=== PATIENT | male | born 1945 | race Caucasian/White ===

== ENCOUNTER 2017-11-10 19:30 | Outpatient (CLI) | payer MEDICARE, BC | END 2017-11-10 19:31 | disposition home or self-care (01) | LOC: SLEEPLAB 19:30 | PROVIDERS: ATTEND Family Medicine | DX: G47.33 Obstructive sleep apnea (adult) (pediatric) (principal); R53.83 Other fatigue; I49.3 Ventricular premature depolarization | CPT/HCPCS: 95811 ==

== ENCOUNTER 2021-06-05 10:52 | Outpatient (CLI) | payer MEDICARE, BC | END 2021-06-05 10:53 | disposition home or self-care (01) | LOC: TBSIIMAG 10:52 | PROVIDERS: ATTEND Family Medicine | DX: M48.062 Spinal stenosis, lumbar region with neurogenic claudication (principal); M51.16 Intervertebral disc disorders with radiculopathy, lumbar region; M47.26 Other spondylosis with radiculopathy, lumbar region; M25.552 Pain in left hip; M48.07 Spinal stenosis, lumbosacral region; M48.061 Spinal stenosis, lumbar region without neurogenic claudication | CPT/HCPCS: 72148 ==

== ENCOUNTER 2021-10-03 15:45 | Outpatient (CLI) | payer MEDICARE, BC ==
[2021-10-03 16:33] LABS: Hemoglobin 15.3 g/dL (13.5-17.5); Mean Corpuscular HGB CONC 33.7 g/dL (32.0-36.0); Mean Corpuscular Hemoglobin 30.4 pg (27.0-33.0); Mean Corpuscular Volume 90.3 fl (81.2-95.1); Mean Platelet Volume 10.7 fl (7.4-10.4); Platelet Count 240 10x3/uL (150-450); RBC Distribution Width 13.2 % (11.5-14.5); Red Blood Cell (RBC) Count 5.03 10x6/uL (4.32-5.72); White Blood Cell (WBC) Count 9.2 10x3/uL (3.5-10.5)
[2021-10-03 16:49] LABS: Anion Gap 14 mmol/L (10-20); BUN (Urea Nitrogen) 22 mg/dL (8.4-25.7); Calc. Creatinine Clearance 0 mL/min (70-130); Calcium 8.8 mg/dL (7.8-10.44); Carbon Dioxide 25 mmol/L (23-31); Chloride 104 mmol/L (98-107); Glucose 120 mg/dL (83-110); Potassium 3.8 mmol/L (3.5-5.1); Sodium 139 mmol/L (136-145)
[2021-10-03 16:54] LABS: INR-International Normal Ratio 0.9; PTT 27.5 sec (22.0-33.0); Prothrombin Time 10.1 sec (9.5-12.1)
[2021-10-04 08:33] LABS: SARS-CoV-2 PCR by NAA Not Detected (NotDetected)
== END 2021-10-03 15:46 | disposition home or self-care (01) ==
LOC: LABBT 15:45
PROVIDERS: ATTEND Surgery
DX: Z01.818 Encounter for other preprocedural examination (principal); Z20.822 Contact with and (suspected) exposure to COVID-19
CPT/HCPCS: 80048; 85027; 85610; 85730; 93005; U0003; U0005; 93010

== ENCOUNTER 2021-10-09 05:29 | Inpatient (IN) | payer MEDICARE, BC ==
[2021-10-09] MEDS ORDERED: Thrombin 5000 UNITS/5 ML VIAL ONE ×2 (06:32→09:56)
[2021-10-09] MEDS ORDERED: HYDROmorphone 0.5 MG/0.5 ML SYRINGE ONE ×2 (06:58→07:28)
[2021-10-09] MEDS ORDERED: fentaNYL Citrate/PF 100 MCG/2 ML SYRINGE ONE (06:58)
[2021-10-09] MEDS ORDERED: ceFAZolin (BATCH) 2 GM/100 ML BAG ONE (07:09)
[2021-10-09] MEDS ORDERED: Ondansetron PF 4 MG/2 ML Vial ONE (07:34)
[2021-10-09] MEDS ORDERED: ePHEDrine 50 MG/ML VIAL ONE (07:34)
[2021-10-09] MEDS ORDERED: Glycopyrrolate 0.2 MG/ML 5 ML SYRINGE ONE (07:34)
[2021-10-09] MEDS ORDERED: Rocuronium Bromide 10 MG/ML (10ML VIAL) ONE (07:34)
[2021-10-09] MEDS ORDERED: Lidocaine 1% PF 5 ML VIAL ONE ×2 (07:34)
[2021-10-09] MEDS ORDERED: PHENYLEPHRINE-NS 100 MCG/ML 10 ML SYRINGE ONE (07:34)
[2021-10-09] MEDS ORDERED: Dexamethasone 20 MG/5 ML VIAL ONE (07:34)
[2021-10-09] MEDS ORDERED: PROPOFOL 200 MG/20 ML VIAL ONE (07:34)
[2021-10-09] MEDS ORDERED: Ondansetron PF 4 MG/2 ML Vial IVP PRN (11:19)
[2021-10-09] MEDS ORDERED: Morphine 2 MG/ML VIAL SLOW IVP PRN (11:19)
[2021-10-09] MEDS ORDERED: Fentanyl 100 MCG/2 ML VIAL SLOW IVP PRN (11:25)
[2021-10-09] MEDS ORDERED: Ondansetron HCl/PF 4 MG/2 ML Vial IVP PRN (11:26)
[2021-10-09] MEDS ORDERED: hydrALAZINE 20 MG/ML VIAL SLOW IVP PRN (11:26)
[2021-10-09] MEDS ORDERED: HYDROmorphone 2 MG/ML VIAL SLOW IVP PRN (11:26)
[2021-10-09] MEDS ORDERED: Promethazine HCl 25 MG/ML VIAL IM PRN (11:26)
[2021-10-09] MEDS ORDERED: Promethazine HCl 25 MG/ML VIAL IVPB PRN (11:26)
[2021-10-09] MEDS ORDERED: Acetaminophen/Codeine 30-300mg Tablet PO PRN (11:28)
[2021-10-09] MEDS ORDERED: diphenhydrAMINE 25 MG CAP PO PRN (11:29)
[2021-10-09] MEDS ORDERED: HYDROmorphone 2 MG/ML VIAL ONE (11:31)
[2021-10-09] MEDS ORDERED: hydrALAZINE 20 MG/ML VIAL ONE ×2 (12:55)
[2021-10-09] MEDS ORDERED: ceFAZolin (BATCH) 2 GM in Premix Bag 1 BAG IVPB SCH (15:00)
[2021-10-09] MEDS: HYDROcodone/Acetaminophen 7.5/325 mg Tablet PO PRN ×2 (15:32→21:58)
[2021-10-09] MEDS: Ketorolac Tromethamine 30 MG/ML VIAL IVP PRN (16:50)
[2021-10-09] MEDS: Diazepam 5 MG TAB PO PRN (16:50)
[2021-10-09] MEDS: CEFAZOLIN 2 GM in Sodium Chloride 0.9% 100 ML IVPB SCH (17:20)
[2021-10-09] MEDS: Sodium Chloride 0.9% 1,000 ML IV SCH (17:20)
[2021-10-10] MEDS: CEFAZOLIN 2 GM in Sodium Chloride 0.9% 100 ML IVPB SCH (01:21)
[2021-10-10] MEDS ORDERED: Labetalol HCl 100 MG/20 ML VIAL SLOW IVP PRN (02:13)
[2021-10-10] MEDS: Sodium Chloride 0.9% 1,000 ML IV SCH ×2 (09:13→22:53)
[2021-10-10] MEDS: Tamsulosin HCl 0.4 MG CAP PO SCH (09:14)
[2021-10-10] MEDS: Hydrochlorothiazide 25 MG TAB PO SCH (09:14)
[2021-10-10] MEDS: Losartan 25 MG TAB PO SCH (09:14)
[2021-10-10] MEDS: Artificial Tear Sol 15 ML BOT EA EYE SCH (09:15)
[2021-10-10] MEDS: traMADol HCl 50 MG TAB PO PRN ×2 (09:24→15:07)
[2021-10-10] MEDS: Diazepam 5 MG TAB PO PRN (11:17)
[2021-10-10] MEDS: HYDROcodone/Acetaminophen 7.5/325 mg Tablet PO PRN (15:52)
[2021-10-10] MEDS ORDERED: Polyethylene Glycol 3350 17 GM Packet PO SCH (20:00)
[2021-10-11] MEDS: Ketorolac Tromethamine 30 MG/ML VIAL IVP PRN ×2 (04:20→10:08)
[2021-10-11] MEDS: Sodium Chloride 0.9% 1,000 ML IV SCH (06:43)
[2021-10-11] MEDS: Hydrochlorothiazide 25 MG TAB PO SCH (07:57)
[2021-10-11] MEDS: Artificial Tear Sol 15 ML BOT EA EYE SCH (07:57)
[2021-10-11] MEDS: Losartan 25 MG TAB PO SCH (07:58)
[2021-10-11] MEDS: Tamsulosin HCl 0.4 MG CAP PO SCH (07:58)
[2021-10-11 08:36] VITALS: TEMP 99.5
[2021-10-11] MEDS ORDERED: Polyethylene Glycol 3350 17 GM Packet PO SCH (09:00)
[2021-10-11 09:28] VITALS: BP 166/75
== END 2021-10-11 13:00 | disposition home or self-care (01) | DRG 517 ==
LOC: SDC 05:29 → MSONC 13:19 → OBSVTOIN 10-10 16:06
PROVIDERS: ADMIT Surgery; ATTEND Surgery
PROC: 01NB0ZZ Release Lumbar Nerve, Open Approach (ICD-10-PCS; principal; 2021-10-09)
PROC: 01NR0ZZ Release Sacral Nerve, Open Approach (ICD-10-PCS; 2021-10-09)
DX: M48.062 Spinal stenosis, lumbar region with neurogenic claudication (principal); M54.16 Radiculopathy, lumbar region; M48.07 Spinal stenosis, lumbosacral region; Z90.49 Acquired absence of other specified parts of digestive tract; Z85.820 Personal history of malignant melanoma of skin; Z98.890 Other specified postprocedural states; Z98.42 Cataract extraction status, left eye; Z98.41 Cataract extraction status, right eye; Z88.6 Allergy status to analgesic agent; Z88.8 Allergy status to other drugs, medicaments and biological substances
CPT/HCPCS: 76000; 96374; 96375; 96376; G0378; J0360; J0690; J1100; J1170; J1885; J2405; J2704; J3370; J3490; J7050

== ENCOUNTER 2022-05-15 07:28 | Outpatient (CLI) | payer MEDICARE, BC | END 2022-05-15 07:29 | disposition home or self-care (01) | LOC: BICMRI 07:28 | PROVIDERS: ATTEND Family Medicine | DX: M96.1 Postlaminectomy syndrome, not elsewhere classified (principal); M47.816 Spondylosis without myelopathy or radiculopathy, lumbar region; M51.36 Other intervertebral disc degeneration, lumbar region; M46.06 Spinal enthesopathy, lumbar region; Z98.890 Other specified postprocedural states | CPT/HCPCS: 72120; 72148 ==

== ENCOUNTER 2023-05-08 10:17 | Outpatient (CLI) | payer MEDICARE, BC | END 2023-05-08 10:18 | disposition home or self-care (01) | LOC: SCSRAD 10:17 | PROVIDERS: ATTEND Family Medicine | DX: R05.3 Chronic cough (principal) | CPT/HCPCS: 71046 ==